=== PATIENT | female | born 1930 | race Caucasian/White ===

== ENCOUNTER 2016-12-07 18:10 | Inpatient (IN) | payer MEDICARE, BC ==
[2016-12-08] MEDS ORDERED: ASPIRIN81 M1 PO (06:51)
[2016-12-08] MEDS ORDERED: TENORMIN50 M1 PO (06:52)
[2016-12-08] MEDS ORDERED: OS-CAL 500+D31 EAC1 PO (06:53)
[2016-12-08] MEDS ORDERED: FISH OIL 1,2001 EAC4 PO (06:53)
[2016-12-08] MEDS ORDERED: SYNTHROID75 MC1 PO (06:54)
[2016-12-08] MEDS ORDERED: LASIX40 M1 PO (06:54)
[2016-12-08] MEDS ORDERED: REMERON15 M1 PO (06:55)
[2016-12-08] MEDS ORDERED: MYRBETRIQ25 M1 PO (06:56)
[2016-12-08] MEDS ORDERED: OMEPRAZOLE20 M3 PO (06:57)
[2016-12-08] MEDS ORDERED: POTASSIUM CHLO20 ME3 PO (06:57)
[2016-12-08] MEDS ORDERED: SENEXON-S TABL1 EAC1 PO (06:57)
[2016-12-08] MEDS ORDERED: NEPHROCAPS SOFTG1 M1 PO (06:58)
[2016-12-08] MEDS ORDERED: VITAMIN D31000 UNI3 PO (06:59)
[2016-12-08] MEDS ORDERED: COUMADIN2 M1 PO (07:00)
[2016-12-08] MEDS ORDERED: ZETIA10 M1 PO (07:01)
[2016-12-08] MEDS ORDERED: AMOX TR-K200 MG/5 M PO (07:03)
[2016-12-08] MEDS ORDERED: KEPPRA500 M3 PO (07:03)
[2016-12-08] MEDS ORDERED: BACTRIM DS TAB1 EAC2 PO (07:04)
[2016-12-08] MEDS ORDERED: TYLENOL325 M2 PO (07:05)
[2016-12-08] MEDS ORDERED: DULCOLAX10 MG PR (07:06)
[2016-12-08] MEDS ORDERED: MILK OF MAGNESIA PO (07:07)
[2016-12-08] MEDS ORDERED: MIRALAX17 G2 PO (07:09)
[2016-12-08] MEDS ORDERED: NITROSTAT0.4 M1 SL (07:09)
[2016-12-08 14:55] LABS: BASO % 0.9 % (0-2); BASO ABSOLUTE COUNT 0.1 tho/cmm (0.0-0.2); EOS % 3.7 % (0-7); EOSINOPHIL ABSOLUTE COUNT 0.2 tho/cmm (0.0-0.7); HCT-HEMATOCRIT 41.3 % (34.0-49.0); HGB-HEMOGLOBIN 13.1 gm/dl (12.0-15.5); LYMPH % 15.9 % (20-45); LYMPH ABSOLUTE COUNT 0.9 tho/cmm (0.8-4.5); MCH (MEAN CORPUSCULAR HGB) 29.2 pg (28.0-32.0); MCHC MEAN CORPUSCULAR HGB CONC 31.7 % (32.0-36.0); MEAN PLATELET VOLUME 11.3 cmc (9.4-12.4); MONO % 8.4 % (0-12); MONOCYTE ABSOLUTE COUNT 0.5 tho/cmm (0.0-1.2); NEUTROPHIL ABSOLUTE COUNT 3.9 tho/cmm (1.6-8.0); NEUTROPHIL-AUTOMATED 3.9 tho/cmm (1.6-8.0); NEUTROPHILS % 71.1 % (40-80); PLATELET COUNT 209 tho/cmm (150-450); RED BLOOD COUNT 4.49 mil/cmm (4.00-5.20); RED CELL DISTRIBUTION WIDTH 14.8 % (12.4-16.4); WHITE BLOOD COUNT 5.5 tho/cmm (4.0-10.0)
[2016-12-08 14:57] LABS: INR 1.4 INR (0.9-1.1); PROTHROMBIN TIME 16.4 SECONDS (9.0-13.6)
[2016-12-08 15:04] LABS: ANION GAP 12 mmol/L (0-20); BLOOD UREA NITROGEN 14 mg/dl (6-24); CALCIUM 8.6 mg/dl (8.5-10.5); CARBON DIOXIDE-VENOUS 28 mmol/L (22-32); CHLORIDE 106 mmol/l (96-110); CREATININE 0.77 mg/dl (0.50-1.10); GLUCOSE 88 mg/dL (70-110); POTASSIUM 3.7 mmol/L (3.7-5.1); SODIUM 142 mmol/L (135-145); eGFR VALUE FOR BLACK 82 mL/Min
[2016-12-10 06:33] LABS: ANION GAP 13 mmol/L (0-20); BLOOD UREA NITROGEN 19 mg/dl (6-24); CALCIUM 8.4 mg/dl (8.5-10.5); CARBON DIOXIDE-VENOUS 28 mmol/L (22-32); CHLORIDE 102 mmol/l (96-110); CREATININE 1.15 mg/dl (0.50-1.10); GLUCOSE 93 mg/dL (70-110); POTASSIUM 3.6 mmol/L (3.7-5.1); SODIUM 139 mmol/L (135-145); eGFR VALUE FOR BLACK 51 mL/Min
[2016-12-11 05:44] LABS: CREATININE 1.13 mg/dl (0.50-1.10); eGFR VALUE FOR BLACK 52 mL/Min
[2016-12-13 05:32] LABS: BASO % 0.7 % (0-2); EOS % 4.8 % (0-7); EOSINOPHIL ABSOLUTE COUNT 0.3 tho/cmm (0.0-0.7); HCT-HEMATOCRIT 38.4 % (34.0-49.0); HGB-HEMOGLOBIN 12.5 gm/dl (12.0-15.5); IMMATURE GRANULOCYTES ABSOLUTE 0.02 tho/cmm (0-0.03); IMMATURE GRANULOCYTES PERCENT 0.3 % (0-0.3); LYMPH % 24.1 % (20-45); LYMPH ABSOLUTE COUNT 1.4 tho/cmm (0.8-4.5); MCH (MEAN CORPUSCULAR HGB) 30.2 pg (28.0-32.0); MCHC MEAN CORPUSCULAR HGB CONC 32.6 % (32.0-36.0); MCV (MEAN CELL VOLUME) 92.8 fl (82.0-96.0); MEAN PLATELET VOLUME 10.7 cmc (9.4-12.4); MONO % 7.4 % (0-12); MONOCYTE ABSOLUTE COUNT 0.4 tho/cmm (0.0-1.2); NEUTROPHIL ABSOLUTE COUNT 3.7 tho/cmm (1.6-8.0); NEUTROPHIL-AUTOMATED 3.7 tho/cmm (1.6-8.0); NEUTROPHILS % 62.7 % (40-80); PLATELET COUNT 197 tho/cmm (150-450); RED BLOOD COUNT 4.14 mil/cmm (4.00-5.20); RED CELL DISTRIBUTION WIDTH 14.9 % (12.4-16.4); WHITE BLOOD COUNT 5.8 tho/cmm (4.0-10.0)
[2016-12-13 08:17] LABS: ESR-ERYTHROCYTE SED RATE 38 mm/hr (0-30)
[2016-12-14 06:27] LABS: CREATININE 0.97 mg/dl (0.50-1.10); eGFR VALUE FOR BLACK 62 mL/Min
[2016-12-15 05:57] LABS: BASO % 0.9 % (0-2); BASO ABSOLUTE COUNT 0.1 tho/cmm (0.0-0.2); EOS % 5.3 % (0-7); EOSINOPHIL ABSOLUTE COUNT 0.3 tho/cmm (0.0-0.7); HCT-HEMATOCRIT 35.7 % (34.0-49.0); HGB-HEMOGLOBIN 11.4 gm/dl (12.0-15.5); LYMPH % 21.1 % (20-45); LYMPH ABSOLUTE COUNT 1.1 tho/cmm (0.8-4.5); MCH (MEAN CORPUSCULAR HGB) 29.5 pg (28.0-32.0); MCHC MEAN CORPUSCULAR HGB CONC 31.9 % (32.0-36.0); MCV (MEAN CELL VOLUME) 92.5 fl (82.0-96.0); MEAN PLATELET VOLUME 10.8 cmc (9.4-12.4); MONO % 9.2 % (0-12); MONOCYTE ABSOLUTE COUNT 0.5 tho/cmm (0.0-1.2); NEUTROPHIL ABSOLUTE COUNT 3.4 tho/cmm (1.6-8.0); NEUTROPHIL-AUTOMATED 3.4 tho/cmm (1.6-8.0); NEUTROPHILS % 63.5 % (40-80); PLATELET COUNT 190 tho/cmm (150-450); RED BLOOD COUNT 3.86 mil/cmm (4.00-5.20); RED CELL DISTRIBUTION WIDTH 15.4 % (12.4-16.4); WHITE BLOOD COUNT 5.3 tho/cmm (4.0-10.0)
[2016-12-15 06:07] LABS: ALBUMIN 2.4 g/dl (3.5-5.0); ANION GAP 13 mmol/L (0-20); AST/SGOT 20 U/L (10-40); BILIRUBIN,TOTAL 0.4 mg/dl (0-1.5); BLOOD UREA NITROGEN 22 mg/dl (6-24); C-REACTIVE PROTEIN 1.6 mg/dl (0-0.9); CALCIUM 8.4 mg/dl (8.5-10.5); CARBON DIOXIDE-VENOUS 28 mmol/L (22-32); CHLORIDE 105 mmol/l (96-110); CREATININE 0.87 mg/dl (0.50-1.10); GLUCOSE 90 mg/dL (70-110); PHOSPHOROUS 3.3 mg/dl (2.5-4.9); POTASSIUM 3.7 mmol/L (3.7-5.1); PREALBUMIN 18.4 mg/dl (20.0-40.0); SODIUM 142 mmol/L (135-145); eGFR VALUE FOR BLACK 71 mL/Min
[2016-12-15 06:14] LABS: ALB/GLOB RATIO 0.6 (0.8-2.0); ALKALINE PHOSPHATASE 85 U/L (33-138); ALT/SGPT 13 U/L (12-78)
== END 2016-12-16 13:45 | disposition swing bed (61) | DRG 629 ==
LOC: BURN 18:10
PROVIDERS: Anesthesiology; Internal Medicine Infectious Disease; ADMIT Surgery
PROC: 0QBL0ZX Excision of Right Tarsal, Open Approach, Diagnostic (ICD-10-PCS; principal; 2016-12-08)
PROC: 0S9 Lower Joints, Drainage (ICD-10-PCS; 2016-12-08)
PROC: 05H633Z Insertion of Infusion Device into Left Subclavian Vein, Percutaneous Approach (ICD-10-PCS; 2016-12-10)
DX: E11.69 Type 2 diabetes mellitus with other specified complication (principal); M86.171 Other acute osteomyelitis, right ankle and foot; E11.40 Type 2 diabetes mellitus with diabetic neuropathy, unspecified; E11.628 Type 2 diabetes mellitus with other skin complications; L03.115 Cellulitis of right lower limb; E11.51 Type 2 diabetes mellitus with diabetic peripheral angiopathy without gangrene; G40.909 Epilepsy, unspecified, not intractable, without status epilepticus; F03.90 Unspecified dementia, unspecified severity, without behavioral disturbance, psychotic disturbance, mood disturbance, and anxiety; I48.2 Chronic atrial fibrillation; I10 Essential (primary) hypertension; L02.611 Cutaneous abscess of right foot; F32.9 Major depressive disorder, single episode, unspecified; Z86.73 Personal history of transient ischemic attack (TIA), and cerebral infarction without residual deficits; Z79.01 Long term (current) use of anticoagulants; E03.9 Hypothyroidism, unspecified; E78.5 Hyperlipidemia, unspecified; G47.33 Obstructive sleep apnea (adult) (pediatric); I25.10 Atherosclerotic heart disease of native coronary artery without angina pectoris; K21.9 Gastro-esophageal reflux disease without esophagitis; M19.90 Unspecified osteoarthritis, unspecified site; M85.80 Other specified disorders of bone density and structure, unspecified site; Z88.8 Allergy status to other drugs, medicaments and biological substances; Z79.82 Long term (current) use of aspirin; B95.61 Methicillin susceptible Staphylococcus aureus infection as the cause of diseases classified elsewhere
CPT/HCPCS: C1751; J0690; J1580; J2543; J3010; J3370; J7050; J7999